=== PATIENT | female | born 1955 | race Caucasian/White ===

== ENCOUNTER 2020-12-21 12:34 | Emergency (ER) | payer MEDICARE ==
[2020-12-21] MEDS ORDERED: NORVASC 5MG5 MG/TAB PO (13:03)
[2020-12-21] MEDS ORDERED: INVOKANA100 MG PO (13:03)
[2020-12-21] MEDS ORDERED: LIPITOR 40MG TA40 MG PO (13:03)
[2020-12-21] MEDS ORDERED: LIPOFEN150 M1 PO (13:04)
[2020-12-21] MEDS ORDERED: AMARYL4 M1 PO (13:05)
[2020-12-21] MEDS ORDERED: LANTUS PEN100 U/ML SQ (13:05)
[2020-12-21] MEDS ORDERED: LEVOXYL137 MCG PO (13:05)
[2020-12-21] MEDS ORDERED: LOSARTAN POTASSI1 GM PO (13:06)
[2020-12-21] MEDS ORDERED: TOPROL-XL200 MG PO (13:06)
[2020-12-21] MEDS ORDERED: TRULICITY3 MG/0.5 M SQ (13:07)
[2020-12-21 13:50] VITALS: BP 126/79
== END 2020-12-21 14:00 | disposition home or self-care (01) ==
LOC: ED 12:34
DX: S61.216A Laceration without foreign body of right little finger without damage to nail, initial encounter (principal); I10 Essential (primary) hypertension; E11.9 Type 2 diabetes mellitus without complications; E03.9 Hypothyroidism, unspecified; Z87.891 Personal history of nicotine dependence; Z23 Encounter for immunization; Z79.899 Other long term (current) drug therapy; Z79.4 Long term (current) use of insulin; Z79.890 Hormone replacement therapy; W26.8XXA Contact with other sharp object(s), not elsewhere classified, initial encounter; Y93.89 Activity, other specified; Y92.009 Unspecified place in unspecified non-institutional (private) residence as the place of occurrence of the external cause
CPT/HCPCS: 90715